=== PATIENT | male | born 1990 | race Caucasian/White ===

== ENCOUNTER → 2016-06-19 | Outpatient (CLI) | payer OTHER ==
--- NOTE | 2016-06-20 02:43 | REP ---
Clinical: Chronic pain . Technique: Internal rotation, external rotation, and Y view right shoulder . Findings: No acute fracture or dislocation. The acromioclavicular and glenohumeral joints are intact. No periarticular calcifications or degenerative changes are appreciated. Sub acromial space is normal. Surrounding soft tissues are unremarkable. Impression: Normal right shoulder radiographs. Signed by Abilio Castillo MD 06/20/2016 02:35 A
== END ==
LOC: M CLY 15:15
PROVIDERS: ATTEND Nurse Practitioner
DX: M25.511 Pain in right shoulder (principal); G89.29 Other chronic pain

== ENCOUNTER → 2016-12-30 | Outpatient (CLI) | payer OTHER ==
--- NOTE | 2016-12-31 02:42 | REP ---
Clinical: Left-sided abdominal pain. Findings: Lung bases are clear. Visualized heart and pericardium are normal. Liver, spleen, pancreas, gallbladder, bilateral adrenal glands and kidneys are normal for noncontrast evaluation. The enteric system is without obstruction or acute inflammatory process. Normal terminal ileum and appendix are identified in the right lower quadrant. Rectosigmoid appears grossly normal. Pelvis demonstrates normal bladder and age appropriate prostate/seminal vesicles. Abdominal aorta without aneurysm. No ascites. No free air. No adenopathy. Musculoskeletal structures are intact and without focal osseous abnormality. Impression: Normal noncontrast CT of the abdomen and pelvis. Signed by Abilio Castillo MD 12/31/2016 02:34 A
== END ==
LOC: M RAD 07:21
PROVIDERS: ATTEND Surgery
DX: R10.84 Generalized abdominal pain (principal)

== ENCOUNTER → 2018-04-29 | Outpatient (REF) | payer OTHER | LOC: M SFHCCLAY 16:13 | DX: J02.9 Acute pharyngitis, unspecified (principal) ==

== ENCOUNTER 2018-10-16 03:51 | Emergency (ER) | payer OTHER ==
[~2018-10-16] VITALS: Ht 190.5 cm; Wt 122.7 kg
[2018-10-16 03:52] VITALS: BP 147/89
[2018-10-16] MEDS ORDERED: predniSONE 20 MG TAB PO ONE (04:30)
[2018-10-16] MEDS ORDERED: IPRATROPIUM 0.5MG/ALBUTEROL 2.5MG INH SOL UD 3ML (DUONEB)(J7620) NEB SCH (04:30)
[2018-10-16] MEDS ORDERED: PRED20TA PO (04:52)
[2018-10-16] MEDS ORDERED: VENTAER INH (04:57)
== END 2018-10-16 05:06 | disposition home or self-care (01) ==
LOC: M ED 03:51
DX: J45.901 Unspecified asthma with (acute) exacerbation (principal); J06.9 Acute upper respiratory infection, unspecified; F41.9 Anxiety disorder, unspecified

== ENCOUNTER 2018-12-24 05:49 | Emergency (ER) | payer OTHER ==
[~2018-12-24] VITALS: Ht 190.5 cm; Wt 122.7 kg
[~2018-12-24 05:49] MED LIST: PRED20TA PO; VENTAER INH
[2018-12-24] MEDS ORDERED: LORA-674 (05:56)
[2018-12-24] MEDS ORDERED: CYCL10TA (05:56)
[2018-12-24] MEDS ORDERED: MONT10TA2 (05:56)
[2018-12-24] MEDS ORDERED: PARO20TA3 (05:56)
[2018-12-24] MEDS ORDERED: LOSA50TA88 (05:56)
[2018-12-24] MEDS ORDERED: LORATADINE 10 MG TAB PO ONE (06:30)
[2018-12-24] MEDS ORDERED: IPRATROPIUM 0.5MG/ALBUTEROL 2.5MG INH SOL UD 3ML (DUONEB)(J7620) NEB ONE (06:30)
[2018-12-24 06:42] VITALS: BP 135/96
--- NOTE | 2018-12-24 07:21 | REP ---
Clinical: Dyspnea. Allergic reaction . Comparison: 11/23/2010 . Technique: PA and lateral. Findings: The mediastinum and cardiac silhouette are normal. The lung campos are clear and without acute consolidation, effusion, or pneumothorax. The skeletal structures are intact and normal. Impression: 1. No acute cardiopulmonary process. Electronically Signed by Abilio Castillo MD 12/24/2018 07:12 A
== END 2018-12-24 07:18 | disposition home or self-care (01) ==
LOC: M ED 05:49
DX: R21 Rash and other nonspecific skin eruption (principal); R06.02 Shortness of breath; R06.2 Wheezing; T78.40XA Allergy, unspecified, initial encounter; X58.XXXA Exposure to other specified factors, initial encounter; Y92.89 Other specified places as the place of occurrence of the external cause; F17.200 Nicotine dependence, unspecified, uncomplicated

== ENCOUNTER → 2019-03-08 | Outpatient (REF) | payer OTHER ==
[~2019-03-08] MED LIST changes: +CYCL10TA; +LORA-674; +LOSA50TA88; +MONT10TA2; +PARO20TA3
[2019-03-08 14:16] LABS: INFLUENZA A AMPLIFICATION NEGATIVE (NEGATIVE); INFLUENZA B AMPLIFICATION NEGATIVE (NEGATIVE)
== END ==
LOC: M LAB REF 13:23
PROVIDERS: ATTEND Physician Assistant Medical
DX: J11.1 Influenza due to unidentified influenza virus with other respiratory manifestations (principal)

== ENCOUNTER → 2020-05-01 | Outpatient (REF) | payer OTHER ==
[~2020-05-01] MED LIST changes: +CYCL-707; -CYCL10TA; -MONT10TA2; +MONT10TA4
[2020-05-01 11:42] LABS: INFLUENZA A AMPLIFICATION NEGATIVE (NEGATIVE); INFLUENZA B AMPLIFICATION NEGATIVE (NEGATIVE)
== END ==
LOC: M LAB REF 10:32
PROVIDERS: ATTEND Physician Assistant Medical
DX: Z20.828 Contact with and (suspected) exposure to other viral communicable diseases (principal)
CPT/HCPCS: 87502; U0002

== ENCOUNTER → 2021-12-05 | Outpatient (REF) | payer OTHER ==
[~2021-12-05] MED LIST changes: +LOSA50TA28; -LOSA50TA88; -MONT10TA4; +MONT10TA97
== END ==
LOC: M LAB REF 20:47
PROVIDERS: ATTEND Physician Assistant
DX: R50.9 Fever, unspecified (principal); M79.10 Myalgia, unspecified site

== ENCOUNTER 2022-01-21 12:28 | Emergency (ER) | payer OTHER ==
[~2022-01-21] VITALS: Ht 190.5 cm; Wt 148.6 kg
[2022-01-21 12:28] VITALS: BP 129/60
[2022-01-21] MEDS ORDERED: ADDE1TAB14 PO (12:35)
[2022-01-21] MEDS ORDERED: LISI10TA22 PO (12:35)
== END 2022-01-21 15:20 | disposition left against medical advice (07) ==
LOC: M ED 12:28
DX: Z53.21 Procedure and treatment not carried out due to patient leaving prior to being seen by health care provider (principal)

== ENCOUNTER 2022-03-28 08:16 | Emergency (ER) | payer OTHER ==
[~2022-03-28] VITALS: Ht 190.5 cm; Wt 153.4 kg
[~2022-03-28 08:16] MED LIST changes: +ADDE1TAB14 PO; +LISI10TA22 PO
[2022-03-28] MEDS ORDERED: OMEP40CA5 (08:25)
[2022-03-28] MEDS ORDERED: LISI40TA4 (08:25)
[2022-03-28] MEDS ORDERED: FLUTISP (08:25)
[2022-03-28] MEDS ORDERED: AMPH1CAP14 (08:25)
[2022-03-28] MEDS ORDERED: LEVO1TAB40 (08:25)
[2022-03-28 09:14] LABS: BASO % 0.5 % (0.0-1.0); EOS # 0.2 10^3/uL (0.0-0.5); EOS % 1.9 % (0.0-3.0); HEMATOCRIT 46.3 % (42.0-52.0); HEMOGLOBIN 14.9 g/dl (13.5-17.5); LYMPH # 2.4 10^3/uL (1.5-5.0); LYMPH % 27.6 % (24.0-44.0); MEAN CORPUSCULAR HEMOGLOBIN 27.7 pg (27.0-33.0); MEAN CORPUSCULAR HGB CONC 32.2 g/dl (32.0-36.5); MEAN CORPUSCULAR VOLUME 86.2 fl (80.0-96.0); MONO # 0.7 10^3/uL (0.0-0.8); MONO % 7.6 % (2.0-8.0); NEUTROPHILS # 5.3 10^3/uL (1.5-8.5); NEUTROPHILS % 61.9 % (36.0-66.0); PLATELET COUNT, AUTOMATED 256 10^3/uL (150-450); RED BLOOD COUNT 5.37 10^6/uL (4.30-6.10); WHITE BLOOD COUNT 8.5 10^3/uL (4.0-10.0)
[2022-03-28 09:46] LABS: ALBUMIN 3.7 GM/DL (3.2-5.2); ALT/SGPT 44 U/L (12-78); BILIRUBIN,DIRECT 0.1 MG/DL (0.0-0.2); BILIRUBIN,TOTAL 0.6 MG/DL (0.2-1.0); BLOOD UREA NITROGEN 17 MG/DL (7-18); CALCIUM LEVEL 8.8 MG/DL (8.5-10.1); CARBON DIOXIDE LEVEL 26 MEQ/L (21-32); CHLORIDE LEVEL 108 MEQ/L (98-107); CREATININE FOR GFR 1.05 MG/DL (0.70-1.30); GLOMERULAR FILTRATION RATE > 60.0 (>60); GLUCOSE, FASTING 92 MG/DL (70-100); LIPASE 261 U/L (73-393); POTASSIUM SERUM 4.6 MEQ/L (3.5-5.1); SODIUM LEVEL 141 MEQ/L (136-145)
[2022-03-28] MEDS ORDERED: KETOROLAC 60MG 2ML VIAL IM ONE (12:30)
[2022-03-28 12:45] LABS: GC DNA AMPLIFICATION NEGATIVE (NEGATIVE)
[2022-03-28] MEDS ORDERED: CYCL-707 PO (13:11)
[2022-03-28] MEDS ORDERED: LIDO5DIS41 TD (13:11)
[2022-03-28 13:23] VITALS: BP 145/95
== END 2022-03-28 13:32 | disposition home or self-care (01) ==
LOC: M ED 08:16
DX: M54.50 Low back pain, unspecified (principal); S39.012A Strain of muscle, fascia and tendon of lower back, initial encounter; K21.9 Gastro-esophageal reflux disease without esophagitis; Z87.891 Personal history of nicotine dependence

== ENCOUNTER → 2023-04-03 | Outpatient (CLI) | payer OTHER ==
[~2023-04-03] MED LIST changes: +AMPH1CAP14; +CYCL-707 PO; +FLUT50SP17; +LEVO1TAB40; +LIDO5DIS41 TD; +LISI40TA4; +LORA-1041; -LORA-674; +OMEP40CA5
== END ==
LOC: M RAD 08:32
PROVIDERS: ATTEND Nurse Practitioner Adult Health
DX: M25.511 Pain in right shoulder (principal); M25.512 Pain in left shoulder

== ENCOUNTER → 2023-05-02 | Outpatient (CLI) | payer OTHER | LOC: M RAD 10:32 | PROVIDERS: ATTEND Nurse Practitioner Adult Health | DX: R07.9 Chest pain, unspecified (principal) ==

== ENCOUNTER → 2024-03-18 | Outpatient (REF) | payer OTHER ==
[~2024-03-18] MED LIST changes: -FLUT50SP17; +FLUTISP
[2024-03-18 18:42] LABS: BASO % 0.6 % (0.0-1.0); EOS # 0.1 10^3/uL (0.0-0.5); EOS % 0.8 % (0.0-3.0); HEMATOCRIT 46.5 % (42.0-52.0); HEMOGLOBIN 15.2 g/dl (13.5-17.5); LYMPH # 1.9 10^3/uL (1.5-5.0); MEAN CORPUSCULAR HEMOGLOBIN 28.3 pg (27.0-33.0); MEAN CORPUSCULAR HGB CONC 32.7 g/dl (32.0-36.5); MEAN CORPUSCULAR VOLUME 86.4 fl (80.0-96.0); MONO # 0.4 10^3/uL (0.0-0.8); MONO % 6.4 % (2.0-8.0); NEUTROPHILS % 61.9 % (36.0-66.0); PLATELET COUNT, AUTOMATED 280 10^3/uL (150-450); RED BLOOD COUNT 5.38 10^6/uL (4.30-6.10); WHITE BLOOD COUNT 6.4 10^3/uL (4.0-10.0)
[2024-03-18 18:59] LABS: HEMOGLOBIN A1c 5.4 % (4.0-6.0)
[2024-03-18 19:29] LABS: ALBUMIN 4.2 G/DL (3.2-5.2); ALKALINE PHOSPHATASE 89 U/L (46-116); ALT/SGPT 58 U/L (7.0-40); AST/SGOT 40 U/L (<34); BLOOD UREA NITROGEN 18 MG/DL (9-23); CALCIUM LEVEL 9.6 MG/DL (8.5-10.1); CARBON DIOXIDE LEVEL 24 MMOL/L (20-31); CHLORIDE LEVEL 109 MMOL/L (98-107); CHOLESTEROL LEVEL 149 MG/DL (<200); CHOLESTEROL RISK RATIO 3.11 (<5); CREATININE FOR GFR 0.96 MG/DL (0.70-1.30); GLOMERULAR FILTRATION RATE > 60.0 (>60); GLUCOSE, FASTING 78 MG/DL (60-100); HDL CHOLESTEROL 47.8 MG/DL (>40); MAGNESIUM LEVEL 2.2 MG/DL (1.8-2.4); NON-HDL-C 101.2 MG/DL; POTASSIUM SERUM 4.3 MMOL/L (3.5-5.1); SODIUM LEVEL 142 MMOL/L (136-145); TOTAL PROTEIN 7.4 G/DL (5.7-8.2); TRIGLYCERIDES LEVEL 66 MG/DL (<150)
[2024-03-18 19:32] LABS: THYROID STIMULATING HORMONE 0.969 uIU/ML (0.55-4.78); TOTAL 25(OH) VITAMIN D 32.9 NG/ML (20.0-100.0)
[2024-03-18 19:35] LABS: FOLATE 22.5 NG/ML (>5.4); VITAMIN B12 LEVEL 547 PG/ML (211-911)
== END ==
LOC: M LAB REF 16:52
PROVIDERS: ATTEND Nurse Practitioner Family
DX: E66.01 Morbid (severe) obesity due to excess calories (principal); E55.9 Vitamin D deficiency, unspecified

== ENCOUNTER → 2024-06-28 | Outpatient (REF) | payer OTHER | LOC: M LAB REF 12:17 | PROVIDERS: ATTEND Student in an Organized Health Care Education/Training Program | DX: J02.9 Acute pharyngitis, unspecified (principal) ==

== ENCOUNTER → 2024-07-20 | Outpatient (REF) | payer OTHER | LOC: M LAB REF 16:13 | PROVIDERS: ATTEND Nurse Practitioner Family | DX: B34.9 Viral infection, unspecified (principal) ==

== ENCOUNTER → 2024-07-20 | Outpatient (CLI) | payer OTHER | LOC: M RAD 12:37 | PROVIDERS: ATTEND Nurse Practitioner Family | DX: B34.9 Viral infection, unspecified (principal) ==

== ENCOUNTER 2025-03-22 06:10 | Emergency (ER) | payer OTHER, SELFPAY ==
[~2025-03-22] VITALS: Ht 190.5 cm; Wt 154.7 kg
[~2025-03-22 06:10] MED LIST changes: +LIDO1ADH93 TD; -LIDO5DIS41 TD; +LISI40TA10; -LISI40TA4
[2025-03-22] MEDS ORDERED: ALBU0.63 (06:15)
[2025-03-22 07:12] VITALS: BP 157/93; TEMP 97.5; O2SAT 98
== END 2025-03-22 07:21 | disposition left against medical advice (07) ==
LOC: M ED 06:10
DX: Z53.21 Procedure and treatment not carried out due to patient leaving prior to being seen by health care provider (principal)

== ENCOUNTER → 2025-04-25 | Outpatient (REF) | payer OTHER, SELFPAY ==
[~2025-04-25] MED LIST changes: +ALBU0.63
== END ==
LOC: M LAB REF 11:46
PROVIDERS: ATTEND Nurse Practitioner Family
DX: R59.1 Generalized enlarged lymph nodes (principal); J04.0 Acute laryngitis